=== PATIENT | female | born 1970 | race Caucasian/White ===

== ENCOUNTER 2018-09-21 05:33 | Outpatient (CLI) | payer OTHER ==
[~2018-09-21] VITALS: Ht 170.2 cm; Wt 77.1 kg
[2018-09-21] MEDS ORDERED: PROM25TA14 PO (12:06)
[2018-09-21] MEDS ORDERED: METH10TA2 PO (12:06)
== END 2018-09-21 12:09 | disposition home or self-care (01) ==
LOC: PREOP 05:33
PROVIDERS: ATTEND Orthopaedic Surgery
DX: Z01.818 Encounter for other preprocedural examination (principal)

== ENCOUNTER 2018-09-26 09:44 | Day surgery (SDC) | payer OTHER ==
[~2018-09-26] VITALS: Ht 170.2 cm; Wt 77.1 kg
[~2018-09-26 09:44] MED LIST: METH10TA2 PO; PROM25TA14 PO
[2018-09-26 10:00] VITALS: BP 128/90
[2018-09-26] MEDS ORDERED: BACITRACIN 100,000 UNIT/NS 1000 ML POUR BOTTLE IR ONE ×2 (10:15)
[2018-09-26] MEDS ORDERED: CLINDAMYCIN 600 MG/50 ML IVPB 50 ML IV ONE (10:30)
[2018-09-26] MEDS ORDERED: CATHETER FLUSH 10 ML SYR IV PRN (10:30)
[2018-09-26] MEDS ORDERED: ONDANSETRON 4 MG/2 ML (SDV) Z0FRAN ONE ×2 (10:41→12:01)
[2018-09-26] MEDS ORDERED: FAMOTIDINE 20MG/2ML IV (PEPCID) ONE (10:41)
[2018-09-26] MEDS ORDERED: SCOPOLAMINE 1.5 MG (TRANSDERM-SCOP) PATCH ONE (10:41)
[2018-09-26] MEDS ORDERED: LACTATED RINGERS 1,000 ML IV PRN (10:43)
[2018-09-26] MEDS ORDERED: ONDANSETRON 4 MG/2 ML (SDV) Z0FRAN IV ONE (10:45)
[2018-09-26] MEDS ORDERED: FAMOTIDINE 20MG/2ML IV (PEPCID) IV ONE (10:45)
[2018-09-26] MEDS ORDERED: SCOPOLAMINE 1.5 MG (TRANSDERM-SCOP) PATCH TOP ONE (10:45)
[2018-09-26] MEDS: LACTATED RINGERS 1,000 ML IV PRN ×2 (10:49→12:43)
[2018-09-26] MEDS ORDERED: BUP/EPI 0.5% 1:200,000 (SENSORCAINE) 30 ML VIAL ONE (11:02)
[2018-09-26] MEDS ORDERED: fentaNYL INJECTION 100 MCG/2 ML AMP ONE (11:02)
[2018-09-26] MEDS ORDERED: VANCOMYCIN 1000 MG/VIAL ONE (11:03)
[2018-09-26] MEDS ORDERED: MIDAZOLAM 2 MG/2 ML (VERSED) VIAL ONE (11:03)
[2018-09-26] MEDS ORDERED: proPOfol 200 MG/20 ML (DIPRIVAN) VIAL IV ONE ×2 (12:01→12:35)
[2018-09-26] MEDS ORDERED: DEXAMETHASONE 10 MG/ML (DECADRON) 1 ML VIAL ONE (12:01)
[2018-09-26] MEDS ORDERED: LIDOCAINE PF 2% 5 ML (XYLOCAINE) VIAL ONE (12:01)
[2018-09-26] MEDS ORDERED: DEXMEDETOMIDINE 200 MCG/2 ML (PRECEDEX) VIAL IV ONE (12:01)
--- NOTE | 2018-09-26 12:45 | Discharge Inst-Simple/Standard ---
Discharge Inst-Standard Discharge Medications New, Converted or Re-Newed RX: RX on Chart Patient Instructions/Follow Up Plan of Care/Instructions/FU: dont bend lift twist push pull 5 lb weight restriction keep incision covered and dry Activity as Tolerated: No Discharge Diet: Regular Diet Return to The [facility] For: new numbness or weakness fever chills shortness of breath chest pain JAREK FERNANDO Sep 26, 2018 12:45
[2018-09-26] MEDS ORDERED: morphine INJ 10 MG/ML 1ML (SYR OR VIAL) IVP ONE (13:15)
[2018-09-26] MEDS ORDERED: ONDANSETRON 4 MG/2 ML (SDV) Z0FRAN IVP PRN (13:15)
[2018-09-26] MEDS ORDERED: PROMETHAZINE INJ 25 MG/ML (PHENERGAN) AMP IVP ONE (13:15)
[2018-09-26] MEDS ORDERED: fentaNYL INJECTION 100 MCG/2 ML AMP IVP ONE (13:15)
[2018-09-26] MEDS ORDERED: SEVOFLURANE (ULTANE) 15 ML INHAL SOLN ONE (13:20)
[2018-09-26] MEDS ORDERED: SUCCINYLCHOLINE INJ 100 MG/5 ML SYR ONE (13:46)
[2018-09-26 13:55] VITALS: BP 123/60
[2018-09-26 14:00] VITALS: BP 123/60
--- NOTE | 2018-09-26 14:12 | Anesthesia-General Post-Op ---
General Patient Condition Mental Status/LOC: Same as Preop Cardiovascular: Satisfactory Nausea/Vomiting: Absent Respiratory: Satisfactory Pain: Controlled Complications: Absent Post Op Complications Complications None Follow Up Care/Instructions Patient Instructions None needed. Anesthesia/Patient Condition Patient Condition Patient is doing well, no complaints, stable vital signs, no apparent adverse anesthesia problems. No complications reported per nursing. D/C home per [facility] Criteria: Yes NAM KURTZ CRNA Sep 26, 2018 14:12
[2018-09-26 14:25] VITALS: BP 116/74
[2018-09-26 14:55] VITALS: BP 126/65
--- NOTE | 2018-09-26 20:25 | Diagnostic Imaging Report ---
EXAM: Fluoroscopy INDICATION: Permanent spinal cord stimulator. Fluoroscopic assistance was provided for Dr. Ramakrishna Mulligan during this permanent spinal cord stimulator device placement. Nine seconds of fluoroscopy time was utilized. A single spot film of the thoracolumbar junction was obtained. There is a dorsal stimulator device in place with the leads overlying the vertebral bodies of T9-10. IMPRESSION: Fluoroscopic assistance was provided for Dr. Ramakrishna Mulligan. Dictated by: Dictated on workstation # [id number]
--- NOTE | 2018-09-26 23:20 | OPERATIVE REPORT ---
DATE OF SERVICE: 09/26/2018 SURGEON: Ramakrishna Mulligan DO CALL PERSON: NAHED Perea. This is a medically necessary procedure. Assistance is necessary for retraction of vital neurovascular structures. Without an office assistant, the procedure would not be possible. PREOPERATIVE DIAGNOSES: 1. Lumbar radiculopathy. 2. Neuropathic pain. POSTOPERATIVE DIAGNOSES: 1. Lumbar radiculopathy. 2. Neuropathic pain. PROCEDURES PERFORMED: 1. Placement of thoracic spinal cord stimulator paddle lead via thoracic laminotomy. 2. Placement of pulse generator. 3. Complex programming. COMPLICATIONS: None. SPECIMENS SENT: None. DRAINS PLACED: None. ANESTHESIA: General endotracheal anesthesia with local anesthetic. ESTIMATED BLOOD LOSS: Minimal. HISTORY OF PRESENT ILLNESS: The patient is a very pleasant 48-year-old female who presented to me with severe neuropathic pain. We did send her for a percutaneous trial. She experienced significant pain relief from that and wished to undergo the procedure. She understood the risks and benefits. DESCRIPTION OF PROCEDURE: The patient was identified by name on wrist band in the preoperative holding area. Her operative site was signed, consent was signed. SCDs were placed. Dermabond was hooked up and antibiotics were started. She was taken to the operating room theater, placed under general endotracheal tube anesthesia, then transferred to the operating room table in the prone position. She was prepped and draped in the usual sterile fashion. Formal timeout was conducted. AP x-ray was then used to david out the pedicles in the thoracic spine. I then made a midline thoracic incision and performing bilateral subperiosteal paraspinal muscular approach. I then performed a T10-T11 laminotomy utilizing a high speed bur and Kerrison rongeurs. I gained access to the epidural space and passed a [employer] Penta lead in the midline position behind the body of T8. I secured this lead to the thoracic fascia. I tested it with the neuromonitoring tech and the [employer] rep where we performed a series of complex maneuvers to ensure equal left and right lower extremity stimulation. At this point, I made a right-sided flank incision. I developed a pocket bluntly for the pulse generator. I passed the leads using a tunneler from the thoracic wound to the lumbar wound. I hooked up a pulse generator and final tightened it. I ensured adequate connectivity, which I did have. I then buried the pulse generator with redundant lead in the pocket, irrigated both wounds, maintained hemostasis and I closed in the usual layered fashion utilizing 0 Vicryl followed by 2-0 Vicryl followed by running 3-0 subcuticular stitches. I applied dressings, took the patient in the supine position to the PACU where she awoke without incident. She tolerated the procedure well. The plan at this time is to discharge the patient today. I will see her back in 2 weeks. She knows to avoid any bending, twisting, pushing, pulling. Please note neuro monitoring utilized was stable throughout the procedure and also note that [employer]fo spinal cord stimulator system was used. Job ID: [id number] DocumentID: [id number] Dictated Date: 09/26/2018 12:46:54 Utility Mechanic Supervisor Date: 09/26/2018 23:19:49 Dictated By: RAMAKRISHNA MULLIGAN DO
== END 2018-09-26 15:05 | disposition home or self-care (01) ==
LOC: SDC 09:44
PROVIDERS: ATTEND Orthopaedic Surgery
DX: M54.16 Radiculopathy, lumbar region (principal); G89.4 Chronic pain syndrome; I34.1 Nonrheumatic mitral (valve) prolapse; Z11.2 Encounter for screening for other bacterial diseases; Z87.891 Personal history of nicotine dependence; Z79.899 Other long term (current) drug therapy; Z85.41 Personal history of malignant neoplasm of cervix uteri
CPT/HCPCS: 87081